=== PATIENT | female | born 1960 | race Caucasian/White ===

== ENCOUNTER 2019-12-23 09:47 | Outpatient (CLI) | payer OTHER, SELFPAY ==
[2019-12-23 10:20] LABS: Basophils Percent Auto 0.6 % (0.2-1.2); Eosinophils Absolute Auto 0.2 K/mm3 (0-0.3); Eosinophils Percent Auto 3.5 % (0-4.4); Hematocrit 35.5 % (37.0-47.0); Hemoglobin 11.3 g/dL (12.0-15.0); Immature Granulocyte Absolute 0.01 K/mm3 (0.00-0.031); Immature Granulocyte Percent A 0.2 % (0-0.5); Lymphocytes Absolute Auto 1.52 K/mm3 (0.9-3.2); Lymphocytes Percent Auto 29.3 % (18.3-44.2); Mean Corpuscular HGB Conc 31.8 g/dl (32-36); Mean Corpuscular Volume 91.3 fl (80-100); Mean Platelet Volume 9.7 fl (7.4-10.4); Monocytes Absolute Auto 0.4 K/mm3 (0.1-0.6); Monocytes Percent Auto 7.5 % (2.6-8.5); Neutrophils Absolute Auto 3.1 K/mm3 (1.3-6.7); Neutrophils Percent Auto 58.9 % (45.5-73.1); Platelet Count Result 244 k/mm3 (150-375); Red Blood Count 3.89 M/mm3 (4.2-5.4); White Blood Count 5.2 K/mm3 (4.5-10.0)
[2019-12-23 10:32] LABS: Alanine Aminotransferase 18 U/L (4-35); Albumin Level 4.3 g/dL (3.5-5.1); Alkaline Phosphatase 105 U/L (38-126); Aspartate Amino Transferase 21 U/L (14-36); Bilirubin,Total 0.3 mg/dL (0.2-1.3); Blood Urea Nitrogen 22 mg/dL (7-17); Carbon Dioxide 24 mmol/L (22-30); Chloride 105 mmol/L (98-107); Cholesterol 148 mg/dL (0-200); Estimated Glomerular Filt Rate 29; Glucose 98 mg/dL (65-105); HDL Direct 59 mg/dL; Potassium 4.3 mmol/L (3.4-5.0); Sodium 137 mmol/L (137-145); Triglycerides 151 mg/dL (<150)
[2019-12-23 10:44] LABS: LDL Cholesterol Direct 56 mg/dL
[2019-12-23 11:06] LABS: Hemoglobin A1C 5.5 % (<5.7)
== END 2019-12-23 09:48 | disposition home or self-care (01) ==
PROVIDERS: PCP Family Medicine; Visit Provider Nurse Practitioner
DX: E78.5 Hyperlipidemia, unspecified (principal); I10 Essential (primary) hypertension; E03.9 Hypothyroidism, unspecified; R73.9 Hyperglycemia, unspecified
CPT/HCPCS: 36415; 80053; 80061; 83036; 84443; 85025

== ENCOUNTER 2020-02-11 09:43 | Outpatient (CLI) | payer OTHER, SELFPAY ==
--- NOTE | ~2020-02-11 | XR_ITS ---
XR knee RT min 4V DATE: 02/11/2020 10:15 INDICATION: 2 falls 4 months ago. Bilateral knee pain. TECHNIQUE: 4 views COMPARISON: None FINDINGS: There is mild loss of height of the medial compartment joint space. No fracture or dislocation or joint effusion. No periosteal reaction or bone destruction. No radiopaq ue intra-articular loose body or chondrocalcinosis. IMPRESSION: Mild loss of height of medial joint space, likely due to degenerative change Reviewed, dictated and finalized at location A. IMPRESSION: Mild loss of height of medial joint space, likely due to degenerati ve change
== END 2020-02-11 09:44 | disposition home or self-care (01) ==
PROVIDERS: PCP Family Medicine; Visit Provider Nurse Practitioner
DX: M25.561 Pain in right knee (principal)
CPT/HCPCS: 73564

== ENCOUNTER → 2020-02-18 12:56 | Outpatient (CLI) | payer OTHER, SELFPAY ==
--- NOTE | ~2020-02-18 | MM_ITS ---
EXAMINATION: MM screening americo BI w wilver HISTORY: Screening mammogram TECHNIQUE: Craniocaudal and mediolateral oblique 3-D tomosynthesis images were obtained and synthetic 2-D images were generated. CAD analysis was submitted and interpreted. COMPARISON: 02/16/2017 bilateral diagnostic digital mammogram and Limited bilateral breast ultrasound 02/07/2017 bilateral digital screening mammogram BREAST PARENCHYMAL COMPOSITION: There are scattered areas of fibroglandular density. FINDINGS: There is an approximately 4.5 x 6.7 mm circumscribed opacity in the central left breast 5 c m deep to the nipple (craniocaudal Tomosynthesis image 40/76; MLO Tomosynthesis image 55/95). This is stable in appearance since 02/07/2017. There is no evidence of suspicious mass, calcification, or arch itectural distortion to suggest malignancy in either breast. There has been no suspicious interval ch jeannie. IMPRESSION: 1. No mammographic evidence of malignancy. 2. Recommend routine screening mammography in one year. BI-RADS Category 2: Benign finding(s). Reviewed, dictated and finalized at location A.
--- NOTE | ~2020-02-18 | DEXA_ITS ---
Bone Density Report Name: Germania Mathew Age: 60 Sex: Female Ethnicity: White Date of : 1960 Indication: postmenopausal; screening for osteoporosis; hysterectomy; rheumatoid arthritis; Referring Provider: Arina Graham Study: Bone densitometry was performed. Exam Date: February 18, 2020 Accession number: [id number] Bone Density: Region BMD T-score Z-score Classification AP Spine (L1, L2, L3) 1.054 0.3 1.8 Normal Femoral Neck (Left) 0.941 0.8 2.2 Normal Total Hip (Left) 1.015 0.6 1.6 Normal Femoral Neck (Right) 0.969 1.1 2.4 Normal Total Hip (Right) 1.044 0.8 1.8 Normal Total Hip Mean 1.030 0.7 1.7 Normal World Health Organization criteria for BMD impression classify patients as: Normal (T-score at or above -1.0), Osteopenia (T-score between -1.0 and -2.5), or Osteoporosis (T-score at or below -2.5). 10-year Fracture Risk: FRAX not reported because: All T-scores for Spine Total, Hip Total, Femoral Neck at or above -1.0 Clinical Information Provided by Patient: Smokes Has rheumatoid arthritis Has the following medical conditions: Hysterectomy Patient maximum height was 64 Menopause Age: 28 No regular weight bearing exercise Does not regularly consume dairy products Drinks caffeinated beverages Onset of menses at age 15 Number of children 3 Impression: The patient has normal bone mass. The patient has risk factors, including: smoking. Discussion: BONE DENSITY IS ABOVE THE MINIMUM DESIRABLE LEVEL AT ALL SKELETAL SITES TESTED. This patient?s bone mineral density is above the minimum desirable level (T-score -1.0 or better) at all sites measured. The patient should follow a healthful lifestyle (good nutrition with adequate calcium and vitamin D, and appropriate weight-bearing exercise). Follow-Up: Consider repeating this study in 5 years or sooner if there is some new clinical indication. Reported by: ANTONELLA on 02/18/2020 2:45:00 PM. Reviewed, dictated and finalized at location AJoby WHITE
== END ==
PROVIDERS: Visit Provider Nurse Practitioner
DX: Z12.31 Encounter for screening mammogram for malignant neoplasm of breast (principal); Z78.0 Asymptomatic menopausal state
CPT/HCPCS: 77063; 77067; 77080

== ENCOUNTER → 2020-02-25 08:24 | Outpatient (CLI) | payer OTHER, SELFPAY ==
--- NOTE | ~2020-02-25 | MR_ITS ---
EXAMINATION: MR knee RT wo con DATE: 02/25/2020 09:17 INDICATION: Right knee pain. TECHNIQUE: Magnetic resonance imaging (MRI) of the right knee was performed without intravenous contr ast. Sequences included axial PD-weighted FS FSE and STIR FSE, coronal PD-weighted FSE and STIR FSE, sagittal PD-weighted FSE, and sagittal STIR FSE. COMPARISON: Right knee radiographs 02/11/2020 FINDINGS: Medial compartment: There is an undersurface horizontal tear of posterior horn of medial meniscus. There is full-thicknes s cartilage loss of femoral condyle involving the central and posterior articular surface. There is d eep partial thickness cartilage loss of tibial condyle involving the central and medial articular joanna face. Osteophytes are noted. Lateral compartment: Lateral meniscus is intact. There is cartilage surface irregularity of tibial condyle and femoral con dyle. Patellofemoral compartment: There is deep partial thickness cartilage loss of patellar medial facet and median ridge and shallow partial-thickness cartilage loss of patellar lateral facet. There is shallow partial-thickness cartil age loss of medial trochlea. There are tiny marginal osteophytes. Ligaments and tendons: The anterior and posterior cruciate ligaments are normal. Medial collateral ligament is normal. There are changes of prior sprain of fibular collateral ligament characterized by thickening and increased signal intensity proximally. The patellar tendon is normal. Fluid: There is a moderate-sized knee joint effusion. There is a small Champion's cyst. There is mild prepatell ar and superficial infrapatellar bursitis. IMPRESSION: 1. Severe chondrosis of medial compartment, moderate chondrosis of patellofemoral compartment, and mi ld chondrosis of lateral compartment. 2. Tear of medial meniscus. 3. Moderate-sized knee joint effusion. 4. Small Champion's cyst. Reviewed, dictated and finalized at location A. IMPRESSION: 1. Severe chondrosis of medial compartment, moderate chondrosis of patellofemor al compartment, and mild chondrosis of lateral compartment. 2. Tear of medial meniscus. 3. Moderate-sized knee joint effusion. 4. Small Champion's cyst.
== END ==
PROVIDERS: PCP Family Medicine; Visit Provider Nurse Practitioner
DX: M25.561 Pain in right knee (principal); M22.2X1 Patellofemoral disorders, right knee; S83.241A Other tear of medial meniscus, current injury, right knee, initial encounter; M25.461 Effusion, right knee; M71.21 Synovial cyst of popliteal space [Baker], right knee
CPT/HCPCS: 73721

== ENCOUNTER 2020-04-20 10:30 | Outpatient (CLI) | payer OTHER, SELFPAY ==
--- NOTE | 2020-04-20 10:31 | ECG_ITS ---
Measurements Intervals [place] Rate: 62 P: 52 RI: 193 QRS: -14 QRSD: 112 T: 26 QT: 415 QTc: 422 Interpretive Statements SINUS RHYTHM INCOMPLETE RIGHT BUNDLE BRANCH BLOCK DELAYED PRECORDIAL R/S TRANSITION LOW QRS VOLTAGE IN PRECORDIAL LEADS BORDERLINE ST-T WAVE ABNORMALITY- ANTERIOR LEADS BASELINE ARTIFACT- I, II, AVR, V3 BORDERLINE ECG Electronically Signed On 04-20-2020 11:30:05 [employer] by Remy Hammond D.O.
== END 2020-04-20 10:31 | disposition home or self-care (01) ==
PROVIDERS: PCP Family Medicine; Visit Provider Orthopaedic Surgery
DX: Z01.818 Encounter for other preprocedural examination (principal); I10 Essential (primary) hypertension; I45.10 Unspecified right bundle-branch block
CPT/HCPCS: 93005

== ENCOUNTER 2020-04-25 01:36 | Outpatient (CLI) | payer OTHER, SELFPAY ==
[2020-04-25 19:09] LABS: SARS-CoV-2 RNA PCR Negative
== END 2020-04-25 01:37 | disposition home or self-care (01) ==
LOC: ANHCOVIDDT 01:36
PROVIDERS: PCP Family Medicine; Visit Provider Orthopaedic Surgery
DX: Z01.818 Encounter for other preprocedural examination (principal); Z20.828 Contact with and (suspected) exposure to other viral communicable diseases
CPT/HCPCS: 87635; C9803; U0003

== ENCOUNTER 2020-05-04 10:15 | Outpatient (CLI) | payer OTHER, SELFPAY ==
[2020-05-04 11:02] LABS: Alanine Aminotransferase 19 U/L (4-35); Albumin Level 4.3 g/dL (3.5-5.1); Alkaline Phosphatase 73 U/L (38-126); Anion Gap 6 mmol/L (8-16); Aspartate Amino Transferase 26 U/L (14-36); Bilirubin,Total 0.4 mg/dL (0.2-1.3); Blood Urea Nitrogen 13 mg/dL (7-17); Calcium 9.6 mg/dL (8.4-10.2); Carbon Dioxide 28 mmol/L (22-30); Chloride 102 mmol/L (98-107); Estimated Glomerular Filt Rate 35; Glucose 109 mg/dL (65-105); Potassium 4.7 mmol/L (3.4-5.0); Sodium 136 mmol/L (137-145)
== END 2020-05-04 10:16 | disposition home or self-care (01) ==
LOC: ANHLAB 10:15
PROVIDERS: PCP Family Medicine; Visit Provider Nurse Practitioner
DX: R74.8 Abnormal levels of other serum enzymes (principal)
CPT/HCPCS: 36415; 80053

== ENCOUNTER → 2020-05-07 13:40 | Outpatient (CLI) | payer OTHER, SELFPAY ==
--- NOTE | ~2020-05-07 | US_ITS ---
EXAMINATION: US renal BI EXAM DATE: 05/07/2020 13:57 INDICATION: Chronic kidney disease stage 3b . TECHNIQUE: Multiple grayscale and Doppler images of the kidneys were obtained (by a technologist who performed the scan) and subsequently reviewed. Comparison is made to prior examination from 11/04/2015. FINDINGS: Right kidney: There is normal contour and echogenicity. It measures 7.8 x 4.8 x 5.4 centimeters. Th ere are no focal renal lesions identified. There is no hydronephrosis. Left kidney: There is normal contour and echogenicity. It measures 9.2 x 4.6 x 5.2 centimeters. The re are no focal renal lesions identified. There is no hydronephrosis. Bladder unremarkable. IMPRESSION: 1. Mild to moderate right, mild left renal atrophy. Reviewed, dictated and finalized at location A. GEMENT COORDINATOR
== END ==
PROVIDERS: PCP Family Medicine; Visit Provider Internal Medicine Nephrology
DX: N18.32 Chronic kidney disease, stage 3b (principal); N26.1 Atrophy of kidney (terminal)
CPT/HCPCS: 76775

== ENCOUNTER 2020-05-16 01:26 | Outpatient (CLI) | payer OTHER, SELFPAY ==
[2020-05-16 20:15] LABS: SARS-CoV-2 RNA PCR Negative
== END 2020-05-16 01:27 | disposition home or self-care (01) ==
LOC: ANHCOVIDDT 01:26
PROVIDERS: Nurse Practitioner Family; PCP Family Medicine; Visit Provider Orthopaedic Surgery
DX: R68.89 Other general symptoms and signs (principal); Z20.828 Contact with and (suspected) exposure to other viral communicable diseases
CPT/HCPCS: 87635; C9803; U0003

== ENCOUNTER 2020-05-19 00:46 | Day surgery (SDC) | payer OTHER, SELFPAY ==
[2020-04-16 10:41] VITALS: BMI 44.6
--- NOTE | 2020-04-29 07:21 | WPDHPUPDATE1 ---
History and Physical Update Update Date/Time: 04/29/20 07:21 History and Physical has been reviewed, including an updated exam of the patient. There are NO changes in the patient's condition. Risks, benefits, and alternatives have been discussed and questions answered. Patient agrees to proceed with procedure.
--- NOTE | 2020-05-11 15:06 | PC.NURSE ---
pt states no change in health hx since original interview date. new time/date and covid testing info provided
--- NOTE | 2020-05-14 16:02 | PM.IMHP ---
H&P: HPI History of Present Illness Date/Time: Knee Injury/Condition Pt presents with Right knee pain after a fall approximately 1 year ago. She states she fell two times and landed on her knee. She has lateral swelling. Pain is primarily medial. She has not had any previous injuries or surgeries to her knee. Current symptoms: Reports locking, catching, instability, giving way and stiffness Location: medial, lateral (swelling), anterior, posterior (swelling) and distal Character: constant, stabbing, throbbing and shooting Onset: 7-12 months Exacerbated by: sitting, weight bearing, kneeling, stairs and prolonged activity Previous treatments: Anti-inflammatory meds: right and Ice: right Improved by treatment/surgery: no Chief complaint: Right Knee Medial Meniscus Tear Review of Systems Review of Systems: All systems reviewed & are unremarkable except as noted in HPI and below Constitutional: Constitutional: Denies headache(s) and Denies weakness Eyes: Eyes: Denies blurry vision, Denies change in vision and Denies loss of vision ENT: Denies dizziness, Denies dry mouth, Denies headache(s) and Denies nasal congestion Cardiovascular: Cardiovascular: Denies chest pain, Denies syncope, Denies leg edema and Denies dyspnea on exertion Respiratory: Respiratory: Denies cough and Denies dyspnea on exertion Gastrointestinal: Gastrointestinal: Denies abdominal pain, Denies constipation and Denies diarrhea Genitourinary: Genitourinary: Denies urinary frequency Musculoskeletal: Musculoskeletal: Reports as per HPI and Denies numbness Integumentary/Breasts: Skin/Breast: Reports system reviewed and no additional complaints, except as docu Neurologic: Denies dizziness, Denies syncope, Denies headache(s), Denies loss of vision, Denies numbness and Denies weakness Psychiatric: Psychiatric: Reports no additional psychiatric complaints Endocrine: Endocrine: Reports no additional endocrine complaints Hematologic/Lymphatic: Hematologic/Lymphatic: Reports no additional hematologic/lymphatic complaints [facility] Past Medical History Medical History Adult hypothyroidism (~2004) CHF (congestive heart failure) (~11/11/15) CKD stage G4/A1, GFR 15-29 and albumin creatinine ratio <30 mg/g COPD mixed type (~2015) Endometriosis Fibromyalgia (~1997) Former heavy tobacco smoker (~2011) quit 2011 after 35 years of smoking up to 2 ppd per [facility] 10/31/2015 History of suicide attempt (~1974) teens x2; 10/11/2017 Hyperlipidemia, unspecified (~2015) Major depression, recurrent, chronic (~1974) Meniere's disease (~02/11/15) Migraines (~1994) SIMON and COPD overlap syndrome (~2015) Prediabetes (~12/08/14) Restless leg syndrome (~02/11/15) Severe obesity (BMI >= 40) (~11/19/15) Surgical History Surgical History H/O hysterectomy for benign disease H/O shoulder surgery right History of appendectomy History of section x2 Family History Family History Mother Hypertension Family history of elevated blood lipids Father Carcinoma of colon Patient's father is Sibling Hypertension Sibling Rheumatoid arthritis Other Heart disease Social History Social History Years smoked: 45 Smoking status: Current every day smoker Tobacco type: cigarettes Alcohol intake: never Substance use: never Gender identity (if verbalized by the patient): Female Spiritual care concerns: No Agree to blood products: Yes Meds Home Medications and Allergies Home Medications Medication Instructions Recorded Confirmed Type carvedilol 25 mg tablet 25 mg PO Q12H #180 tablet 06/04/19 04/16/20 Rx losartan 100 mg tablet 100 mg PO DAILY #30 tablet 07/29/19 04/16/20 Rx gabapentin 300 mg capsule 300 mg PO TID #270 cap 07
[2020-05-19] VITALS (9 sets, daily range): BP systolic 129–186; BP diastolic 65–118; PULSE 87–105; RESP 10–20; TEMP 36.1–37.3; O2SAT 97–100
--- NOTE | 2020-05-19 13:34 | WPDANESEPPF ---
Anes - Initial Pre Proc Eval Procedure: Operation Date: 05/19/20 15:00 Proposed Procedures p Right Knee Arthroscopy - Magdy Ho MD Date/Time: 05/19/20 13:34 Surgeon: Magdy Ho MD Pre Op Diagnosis: Right Knee Medial Meniscus Tear Patient Data Age: 60 Gender: F Height: 5 ft 4 in Weight: 118 kg Allergies Allergy/AdvReac Type Severity Reaction Status Date / Time naproxen Allergy Severe hives Verified 04/16/20 09:48 Iodine and Iodide Containing Allergy Intermediate hives Verified 04/16/20 09:48 Produc lisinopril Allergy Intermediate Cough Verified 04/16/20 09:48 Penicillins Allergy Intermediate hives Verified 04/16/20 09:48 Sulfa (Sulfonamide Allergy Mild hives Verified 04/16/20 09:48 Antibiotics) Contrast Media Allergy Intermediate HIVES Uncoded 04/16/20 09:48 Home Medications Medication Instructions Recorded Confirmed Type carvedilol 25 mg tablet 25 mg PO Q12H #180 tablet 06/04/19 04/16/20 Rx losartan 100 mg tablet 100 mg PO DAILY #30 tablet 07/29/19 04/16/20 Rx gabapentin 300 mg capsule 300 mg PO TID #270 cap 12/12/19 04/16/20 Rx chlorhexidine gluconate 4 % 1 applic TOPICAL ONCE #237 ml 04/13/20 04/16/20 Rx topical liquid albuterol 90 mcg INHALATION PRN PRN 04/16/20 04/16/20 History atorvastatin 40 mg PO DAILY 04/16/20 04/16/20 History ipratropium-albuterol 3 ml INHALATION PRN PRN 04/16/20 04/16/20 History levothyroxine 50 mcg PO DAILY 04/16/20 04/16/20 History prazosin 2 mg PO HS 04/16/20 04/16/20 History quetiapine 200 mg PO HS 04/16/20 04/16/20 History trazodone 100 mg PO HS 04/16/20 04/16/20 History venlafaxine 75 mg PO QAM 04/16/20 04/16/20 History venlafaxine 150 mg PO HS 04/16/20 04/16/20 History tizanidine 4 mg tablet See Rx Instructions .ROUTE 04/23/20 Rx .COMPLEX #90 tablet hydroxyzine pamoate 25 mg capsule 25 mg PO DAILY #30 cap 04/28/20 Rx acyclovir 5 % topical cream 1 applic TOPICAL ONCE PRN #5 g 04/29/20 Rx tramadol 50 mg tablet 50 mg PO TID PRN #60 tablet 05/06/20 Rx Patient hx anesthesia problems: none Family hx anesthesia problems: none PMFSH Past Medical History Medical History Adult hypothyroidism (~2004) CHF (congestive heart failure) (~11/11/15) CKD stage G4/A1, GFR 15-29 and albumin creatinine ratio <30 mg/g COPD mixed type (~2015) Endometriosis Fibromyalgia (~1997) Former heavy tobacco smoker (~2011) quit 2011 after 35 years of smoking up to 2 ppd per [facility] record 10/31/2015 History of suicide attempt (~1974) teens x2; 10/11/2017 Hyperlipidemia, unspecified (~2015) Major depression, recurrent, chronic (~1974) Meniere's disease (~02/11/15) Migraines (~1994) SIMON and COPD overlap syndrome (~2015) Prediabetes (~12/08/14) Restless leg syndrome (~02/11/15) Severe obesity (BMI >= 40) (~11/19/15) Surgical History Surgical History H/O hysterectomy for benign disease H/O shoulder surgery right History of appendectomy History of section x2 Family History Family History Mother Hypertension Family history of elevated blood lipids Father Carcinoma of colon Patient's father is Sibling Hypertension Sibling Rheumatoid arthritis Other Heart disease Social History Social History Years smoked: 45 Smoking status: Current every day smoker Tobacco type: cigarettes Alcohol intake: never Substance use: never Living arrangements: with family Gender identity (if verbalized by the patient): Female Spiritual care concerns: No Agree to blood products: Yes Anes - Eval Final PreProcedure Day of Procedure 05/19/20 13:34 Patient weight: morbidly obese Heart: regular rate and rhythm Lungs: clear to auscultation Airway: Mallampati scale class II and class III Neurological: alert and wilmer
[2020-05-19] MEDS: ACETAMINOPHEN 500 MG TABLET 1000 MG PO (13:46)
[2020-05-19] MEDS: LACTATED RINGERS 1,000 ML 30 ML IV CONT ×2 (13:50→16:03)
--- NOTE | 2020-05-19 14:10 | WPDHPUPDATE1 ---
History and Physical Update Update Date/Time: 05/19/20 14:10 History and Physical has been reviewed, including an updated exam of the patient. There are NO changes in the patient's condition. Risks, benefits, and alternatives have been discussed and questions answered. Patient agrees to proceed with procedure.
[2020-05-19] MEDS: CLINDAMYCIN 900 MG/D5W 50 ML 900 MG/50 ML PIGGYBACK 50 MG IVPB (14:15)
[2020-05-19] MEDS: BUPIVACAINE HCL 0.5% PF 30 ML VIAL INFILTRATE (14:54)
[2020-05-19] MEDS: fentaNYL CITRATE INJ (*CRX) 100 MCG/2 ML VIAL 25 MCG IV PUSH ×6 (15:30→15:53)
--- NOTE | 2020-05-19 15:30 | PM.PROC ---
Procedure Note - Detailed Date of procedure: 05/19/20 Pre-op diagnosis: Right Knee Medial Meniscus Tear Post-op diagnosis: other (medial meniscus tear, lateral meniscus tear, chondromalacia, synovitis) Procedure performed: RIGHT KNEE SCOPE WITH PARTIAL MEDIAL MENISCECTOMY AND MAJOR SYNEVECTOMY Description of procedure: PATIENT WAS TAKEN TO THE OR. THE RIGHT LEG WAS PREPPED AND DRAPED STERILE. TROCARS WERE PLACED IN THE USUAL FASHION. CAMERA WAS INTRODUCED. THERE WAS CHONDROMALACIA TO THE PATELLA FEMORAL JOINT. THERE WAS A LOT OF SYNOVITIS IN ALL COMPARTMENTS. THE MEDIAL COMPARTMENT SHOWED CHONDROMALACIA TO THE MED FEMORAL CONDYLE. A SHAVER WAS USED TO PREFORM A CHONDROPLASTY. THERE WAS A COMPLEX MEDIAL MENISCUS TEAR. THE TEAR EXTENDED FROM THE MENISCAL ROOT TO THE POSTERIOR HORN MAIN BODY. THE TEAR WAS RESECTED WITH A BITER AND A SHAVER DOWN TO A SMOOTH BASE. ABOUT 15% OF THE MENISCUS WAS REMOVED. THE ACL WAS INTACT. THE LATERAL MENISCUS WAS NOT TORN. THE LAT COMPARTMENT HAD NO SIGNIFICANT CHONDROMALACIA. THE PATELLO FEMORAL JOINT UNDERWENT CHONDROPLASTY. THERE WAS GRADE 3 CHONDROMALACIA IN MOST OF THE TROCHLEA AND PART OF THE PATELLA. SYNOVECTOMY WAS PREFORMED IN THE SUPERIOR MEDIAL COMPARTMENT AND IN HOFFA'S SYNOVIUM. THE PATELLA TRACKED NORMALLY WITHIN THE TROCHLEA. THE WOUNDS WERE APPROXIMATED WITH 4.0 NYLON. STERILE DRESSING WAS APPLIED. PATIENT WAS EXTUBATED. Anesthesia: GLMA Surgeon: Magdy Ho MD Estimated blood loss (mL): 5 Complications: No immediate complications Condition: stable Disposition: PACU
[2020-05-19] MEDS: MEPERIDINE HCL INJ (*CRX) 50 MG/ML AMPUL 25 MG IV PUSH (15:58)
--- NOTE | 2020-05-19 16:09 | SUR.PHASEI ---
PATIENT SHAKING SINCE ARRIVAL TO PACU. JAY NIX APPLIED BUT STILL SHAKING. DR. GONZALEZ ORDERED DEMEROL WHICH IS HELPING SOMEWHAT,
== END 2020-05-19 17:40 | disposition home or self-care (01) ==
PROVIDERS: PCP Family Medicine; Visit Provider Orthopaedic Surgery
PROC: (CPT 29870; principal; 2020-05-19 15:00)
DX: S83.231A Complex tear of medial meniscus, current injury, right knee, initial encounter (principal); M65.861 Other synovitis and tenosynovitis, right lower leg; M94.261 Chondromalacia, right knee; W19.XXXA Unspecified fall, initial encounter; I13.0 Hypertensive heart and chronic kidney disease with heart failure and stage 1 through stage 4 chronic kidney disease, or unspecified chronic kidney disease; N18.4 Chronic kidney disease, stage 4 (severe); I50.9 Heart failure, unspecified; E03.9 Hypothyroidism, unspecified; M79.7 Fibromyalgia; J44.9 Chronic obstructive pulmonary disease, unspecified; E78.5 Hyperlipidemia, unspecified; F33.9 Major depressive disorder, recurrent, unspecified; G47.33 Obstructive sleep apnea (adult) (pediatric); R73.03 Prediabetes; G25.81 Restless legs syndrome; Z87.891 Personal history of nicotine dependence; E66.01 Morbid (severe) obesity due to excess calories; Z68.41 Body mass index [BMI] 40.0-44.9, adult
CPT/HCPCS: 29881; 29876; A9270; J1100; J2175; J2405; J2704; J3010; J7120

== ENCOUNTER → 2020-08-28 00:34 | Outpatient (CLI) | payer OTHER, SELFPAY ==
[2020-08-28 17:44] LABS: SARS-CoV-2 RNA PCR Negative
== END ==
PROVIDERS: PCP Family Medicine; Visit Provider Internal Medicine Critical Care Medicine
DX: Z01.812 Encounter for preprocedural laboratory examination (principal); Z20.822 Contact with and (suspected) exposure to COVID-19
CPT/HCPCS: C9803; U0003; U0005

== ENCOUNTER 2020-08-31 09:19 | Outpatient (CLI) | payer OTHER, SELFPAY ==
--- NOTE | 2020-09-21 09:26 | WPDSLEEPSTUD ---
Sleep Study Date of Study: 08/31/20 Ordering Provider: Remy Hammond DO Interpreting Physician: Karina Lanier MD Sleep Study Type: CPAP Titration Height: 1.63 m Weight: 122.47 kg Body Mass Index: 46.3 Neck Circumference (inches): 16.5 [place] [facility]: 7 Reason for Sleep Study history of obstructive sleep apnea syndrome, prior split night on 12/16/2015 optimal pressure 15 cm Sleep History Germania Mathew is a 60 year old female with history of moderate obstructive sleep apnea syndrome, optimal pressure was 15 and 2016. A repeat CPAP titration was ordered by Dr. Hammond. She reports difficulty falling asleep, she wakes up throughout the night, she has a difficult time waking in the morning and she has excessive daytime sleepiness. Both of her parents have sleep difficulties. The patient has used CPAP. It she occasionally awakens from sleep feeling short of breath. She rarely awakens at night with heartburn, belching or coughing. She rarely snores and rarely isn't loud enough that others complain about it. She occasionally has trouble sleeping when she has a cold. She rarely wakes up gasping for breath at night. She occasionally has breathing problems at night observed by others. She does not sweat excessively at night. She rarely notices her heart pounding or beating irregularly at night. She constantly falls asleep during the day, rarely involuntarily, never while driving. She does not fall asleep during physical effort. She does not have loss of muscle tone was strong emotion. She rarely has daytime difficulties due to excessive sleepiness. She does not feel paralyzed on waking or falling asleep and does not have vivid dreamlike scenes upon awakening or falling asleep. She does not feel afraid to go to sleep. She does not have nightmares. She does not have dream recall. She constantly has racing thoughts. She does not feel sad or depressed. She frequently has anxiety and worries about things. She rarely has muscular tension. She constantly notices parts of her body jerking. She occasionally kicks at night. She constantly has crawling and aching feelings in her legs and constantly has leg pain at night. She does not have morning jaw pain and does not grind her teeth during sleep. She occasionally has bothered by pain during the day and occasionally is awakened by pain at night. She rarely wakes up feeling stiff in the morning. She occasionally wakes up with sore achy muscles and pain in the neck and spine. She has memory problems and insomnia. Normal bedtime is 10:00 p.m. taking 5 hours to fall asleep waking 2 or 3 times at night. When she wakes at night she often has a cigarette. It may take her an hour to return to sleep. She wakes the morning at 8:00 a.m.. She estimates getting up to 6 hours of sleep. On the weekends she goes to bed at midnight and wakes at 10 in the morning. She always sleeps with the television on. She takes naps. A short nap is not refreshing. She is drowsy for 3 hours after waking. She feels better in the morning compared other times of day. Habits: Tobacco 1 pack per day. Caffeine : 4 Cokes per day. No alcohol or recreational drugs. [facility] Past Medical History Medical History Adult hypothyroidism (~2004) CHF (congestive heart failure) (~11/11/15) CKD stage G4/A1, GFR 15-29 and albumin creatinine ratio <30 mg/g COPD mixed type (~2015) Endometriosis Fibromyalgia (~1997) Former heavy tobacco smoker (~2011) quit 2011 after 35 years of smoking up to 2 ppd per [facility] 10/31/2015 History of suicide attempt (~1974) teens x2; 10/11/2017 Hyperlipidemia, unspecified (~2015) Major depression, recurrent, chronic (~1974) Meniere's disease (~02/11/15) Migraines (~1994) SIMON and COPD overlap syndrome (~2015) Prediabetes (~12/08/14) Restless leg syndrome (~02/11/15) Severe obesity (BMI >= 40) (~11/19/15) Surgical History Surgical History (Revie
[2020-09-21 09:35] VITALS: BMI 46.3
== END 2020-08-31 09:20 | disposition home or self-care (01) ==
LOC: ANHCSM 09:19
PROVIDERS: PCP Family Medicine; Visit Provider Internal Medicine Cardiovascular Disease
DX: G47.33 Obstructive sleep apnea (adult) (pediatric) (principal)
CPT/HCPCS: 95811

== ENCOUNTER → 2021-01-15 03:40 | Outpatient (CLI) | payer OTHER, SELFPAY ==
[2021-01-16 01:34] LABS: SARS-CoV-2 RNA PCR Negative
== END ==
PROVIDERS: PCP Family Medicine; Visit Provider Nurse Practitioner
DX: R68.89 Other general symptoms and signs (principal); Z20.822 Contact with and (suspected) exposure to COVID-19
CPT/HCPCS: C9803; U0003; U0005

== ENCOUNTER 2021-03-12 14:37 | Outpatient (CLI) | payer OTHER, SELFPAY ==
--- NOTE | 2021-03-12 14:47 | ECHO_ITS ---
Patient Info Name: Germania Mathew Age: 61 years : 1960 Gender: Female Ht: 64 in Wt: 270 lbs BSA: 2.42 m2 HR: 78 bpm BP: 128 / 78 mmHg Technical Quality: Fair Exam Date: 03/12/2021 3:03 PM Exam Location: [facility] Patient Status: Outpatient Admit Date: 03/12/2021 Staff Ordering Physician: Remy Hammond DO Stream Control Officer: Destiny Bains RDCS Attending Provider: Remy Hammond DO Referring Physician: Manish SPARKS; Exam Type: CA echo dop color flow w con Study Info Indications - nonrheumatic mitral julia prolaspe Complete two-dimensional, color flow and Doppler transthoracic echocardiogram is performed with contrast to opacify the left ventricle and to improve the deliniation of the left ventricle endocardial borders. Contrast/Agitated Saline Contrast/Ag. Saline: Definity Amount: 1.00 ml Administered By: Perma Gastelum RN Existing IV Access: Yes Summary 1. Left ventricular chamber dimension is normal. 2. Definity contrast administered improved wall motion interpretation. 3. Left ventricular systolic function is normal, estimated at 60-65%. 4. The left ventricular diastolic function is grade I diastolic dysfunction. 5. E/e' 13 is mildly elevated. 6. No pulmonary hypertension, estimated pulmonary arterial systolic pressure is 22 mmHg. 7. There is small circumferential pericardial effusion. Left Ventricle Definity contrast administered improved wall motion interpretation. E/e' 13 is mildly elevated. Left ventricular chamber dimension is normal. Left ventricular systolic function is normal, estimated at 60-65%. The left ventricular diastolic function is grade I diastolic dysfunction. Right Ventricle Right ventricular chamber dimension is normal. Right ventricular systolic function is normal. Left Atria Left atrial chamber dimension is normal. Right Atria Right atrial chamber dimension is normal. Aortic Valve The aortic valve is trileaflet. There is no aortic valve stenosis. There is no aortic valve regurgitation. Pulmonic Valve There is no pulmonic regurgitation. Mitral Valve There is no mitral valve stenosis. There is no mitral valve regurgitation. Tricuspid Valve There is no tricuspid valve regurgitation. No pulmonary hypertension, estimated pulmonary arterial systolic pressure is 22 mmHg. Pericardium/Pleural There is small circumferential pericardial effusion. Inferior Vena Cava Normal inferior vena cava with >50% collapse upon inspiration consistent with normal right atrial pressure, 5 mmHg. Aorta The aortic root size at the sinus of Valsalva is normal. Left Ventricular Outflow Tract Name Value Normal LVOT 2D LVOT Diameter 1.96 cm LVOT Doppler LVOT Peak Gradient 13 mmHg LVOT Mean Gradient 6 mmHg LVOT VTI 33.62 cm LVOT VTI/AV VTI Ratio 1.06 LVOT Stroke Volume 101.50 ml LVOT CO 21.33 l/min LVOT CI 8
== END 2021-03-12 14:38 | disposition home or self-care (01) ==
PROVIDERS: PCP Family Medicine; Visit Provider Internal Medicine Cardiovascular Disease
DX: I34.1 Nonrheumatic mitral (valve) prolapse (principal); I31.3 Pericardial effusion (noninflammatory)
CPT/HCPCS: C8929

== ENCOUNTER 2021-10-19 06:35 | Emergency (ER) | payer OTHER, SELFPAY ==
[2021-10-19] VITALS (8 sets, daily range): BP systolic 73–132; BP diastolic 49–91; PULSE 59–76; RESP 16–23; O2SAT 95–100
--- NOTE | ~2021-10-19 | CT_ITS ---
EXAMINATION: CT cervical spine wo con DATE: 10/19/2021 07:38 INDICATION: Right-sided neck pain. TECHNIQUE: Computed tomography (CT) of the cervical spine was performed without intravenous contrast. Automated exposure control and iterative reconstruction technique were employed. The dose-length pro duct was 508.77 mGy-cm. COMPARISON: None FINDINGS: There is 2 mm retrolisthesis of C5 on C6. Vertebral body heights are normal. There is sever yonatan decreased disc height at C5-C6 and mildly decreased disc height at C6-C7. The following disc leve ls are specifically discussed: C2-C3: There is no uncovertebral joint osteoarthritis. There is mild bilateral facet joint osteoarthr itis. There is no neural foraminal stenosis. There is no central canal stenosis. C3-C4: There is no uncovertebral joint osteoarthritis. There is mild right and severe left facet join t osteoarthritis. There is mild left neural foraminal stenosis. There is no central canal stenosis. C4-C5: There is no uncovertebral joint osteoarthritis. There is moderate right and severe left facet joint osteoarthritis. There is mild left neural foraminal stenosis. There is mild central canal steno sis. C5-C6: There is severe bilateral uncovertebral joint osteoarthritis. There is mild bilateral facet ana int osteoarthritis. There is mild bilateral neural foraminal stenosis. There is mild central canal st enosis. C6-C7: There is mild right and moderate left uncovertebral joint osteoarthritis. There is moderate bi lateral facet joint osteoarthritis. There is mild left neural foraminal stenosis. There is mild centr al canal stenosis. C7-T1: There is no uncovertebral joint osteoarthritis. There is severe bilateral facet joint osteoart hritis. There is mild right neural foraminal stenosis. There is no central canal stenosis. IMPRESSION: 1. No fracture. 2. Severe cervical spondylosis. Reviewed, dictated and finalized at location B.
--- NOTE | ~2021-10-19 | XR_ITS ---
EXAMINATION: XR elbow RT min 3V DATE: 10/19/2021 07:53 INDICATION: Right elbow pain post fall TECHNIQUE: Anteroposterior, two oblique and lateral views of the right elbow were obtained. COMPARISON: None. FINDINGS: Alignment is normal. No fracture or joint effusion. Mild osteoarthritis at the ulnotrochlear articula tion. Mild soft tissue swelling with subcutaneous edema posterior to the proximal ulna. IMPRESSION: 1. No right elbow joint effusion or acute osseous abnormality. Reviewed, dictated and finalized at location A.
--- NOTE | ~2021-10-19 | XR_ITS ---
EXAMINATION: XR shoulder RT min 2V DATE: 10/19/2021 07:53 INDICATION: Right shoulder pain post fall TECHNIQUE: AP internally and externally rotated, AP oblique externally rotated and transscapular Y vi ews of the right shoulder were obtained. COMPARISON: None FINDINGS: Suggestion of postoperative change of prior acromioplasty and distal clavicle resection. Old healed p osterolateral right third-seventh rib fractures. No acute fractures identified. 5 x 3 mm calcificatio n projecting along the right greater tuberosity which could be due to either heterotopic ossification related to old trauma or calcific tendinitis. IMPRESSION: 1. No acute osseous abnormality. 2. Small calcification along the greater tuberosity which could be due to calcific tendinitis or sequ weston of old trauma. Reviewed, dictated and finalized at location A. IMPRESSION: 1. No acute osseous abnormality. 2. Small calcification along the greater tuberosity which could be due to calci fic tendinitis or sequela of old trauma.
--- NOTE | 2021-10-19 07:18 | PC.NURSE ---
Assumed care from DANA Ivan. Pt sitting up in bed at this time
[2021-10-19] MEDS: diazePAM INJ (*CRX) 10 MG/2 ML SYRINGE 5 MG IV PUSH (08:34)
[2021-10-19] MEDS: SODIUM CHLORIDE 0.9% IV 1,000 ML 999 ML IV CONT (10:24)
--- NOTE | 2021-10-19 11:49 | ED.GENADULT ---
HPI - General Adult General Chief complaint: Fall Stated complaint: Fall Time Seen by Provider: 10/19/21 06:57 History of Present Illness HPI narrative: Patient is a 61-year-old female who presents ER with neck pain status post fall. Patient fell 2 days ago. She was in her bedroom and had her cellar door open to the basement when she fell down at 8 stairs on concrete steps. Landed on her right side. Has pain to the right shoulder. She is able to move her arm. She reports did not have sudden pain or sudden onset tingling and numbness or burning. She slowly developed discomfort in her neck over the last couple days. She is also noticed a burning sensation that will occasionally go into her arms bilaterally. No urinary frequency urgency or dysuria. No urinary retention. No lower extremity numbness or tingling. Patient placed in c-collar. Denies striking her head or losing consciousness. Related Data Home Medications Medication Instructions Recorded Confirmed quetiapine 100 mg tablet 100 mg PO .COMPLEX tablet 10/28/20 09/16/21 quetiapine 300 mg tablet 300 mg PO .COMPLEX tablet 10/28/20 09/16/21 Allergies Allergy/AdvReac Type Severity Reaction Status Date / Time Iodine and Iodide Containing Allergy Severe hives Verified 09/16/21 14:14 Produc naproxen Allergy Severe hives Verified 09/16/21 14:14 Penicillins Allergy Severe hives Verified 09/16/21 14:14 Sulfa (Sulfonamide Allergy Severe hives Verified 09/16/21 14:14 Antibiotics) lisinopril Allergy Intermediate Cough Verified 09/16/21 14:14 Contrast Media Allergy Severe HIVES Uncoded 09/16/21 14:14 Review of Systems Review of Systems: All systems reviewed & are unremarkable except as noted in HPI and below Constitutional: Constitutional: Denies chills, Denies fever(s) and Denies weakness Eyes: Eyes: Denies change in vision and Denies photophobia ENT: Denies nasal congestion and Denies sore throat Cardiovascular: Cardiovascular: Denies chest pain, Denies rapid heart rate and Denies radiating jaw, neck or arm pain Respiratory: Respiratory: Denies cough and Denies dyspnea Musculoskeletal: Musculoskeletal: Denies back pain, Reports arthralgias and Denies joint swelling Comments: Neck pain Neurologic: Denies headache(s), Denies focal weakness and Denies numbness Comments: Burning sensation in arms PMFSH Past Medical History Medical History Adult hypothyroidism (~2004) CHF (congestive heart failure) (~11/11/15) CKD stage G4/A1, GFR 15-29 and albumin creatinine ratio <30 mg/g COPD mixed type (~2015) Dislocation of finger Endometriosis Fibromyalgia (~1997) Former heavy tobacco smoker (~2011) quit 2011 after 35 years of smoking up to 2 ppd per [facility] 10/31/2015 History of suicide attempt (~1974) teens x2; 10/11/2017 Hyperlipidemia, unspecified (~2015) Hypertension Major depression, recurrent, chronic (~1974) Medial meniscus, posterior horn derangement Meniere's disease (~02/11/15) Migraines (~1994) Prediabetes (~12/08/14) Restless leg syndrome (~02/11/15) Surgical History Surgical History H/O hysterectomy for benign disease H/O knee surgery H/O shoulder surgery right History of appendectomy History of section x2 Family History Family History Mother Hypertension Family history of elevated blood lipids Father Carcinoma of colon Patient's father is Sibling Hypertension Sibling Rheumatoid arthritis Other Heart disease Social History Social History (Updated 09/16/21 @ 14:28 by Summer Portillo MA) Years smoked: 45 Smoking status: Former smoker Tobacco type: cigarettes Alcohol intake: never Substance use: never Gender identity (if verbalized by the patient): Female Spiritual care concerns: No Agree to blood produc
== END 2021-10-19 12:08 | disposition home or self-care (01) ==
PROVIDERS: Emergency Provider Emergency Medicine; PCP Family Medicine
DX: S16.1XXA Strain of muscle, fascia and tendon at neck level, initial encounter (principal); M54.12 Radiculopathy, cervical region; I13.0 Hypertensive heart and chronic kidney disease with heart failure and stage 1 through stage 4 chronic kidney disease, or unspecified chronic kidney disease; I50.9 Heart failure, unspecified; N18.4 Chronic kidney disease, stage 4 (severe); Z87.891 Personal history of nicotine dependence; W10.9XXA Fall (on) (from) unspecified stairs and steps, initial encounter; Y92.008 Other place in unspecified non-institutional (private) residence as the place of occurrence of the external cause
CPT/HCPCS: 72125; 73030; 73080; 96361; 96365; 96375; 99284; J0131; J3360; J7030; L0140

== ENCOUNTER 2022-05-06 08:58 | Outpatient (CLI) | payer OTHER, SELFPAY ==
[2022-05-06 09:22] LABS: Basophils Percent Auto 0.5 % (0.2-1.2); Eosinophils Absolute Auto 0.2 K/mm3 (0-0.3); Eosinophils Percent Auto 2.9 % (0-4.4); Hemoglobin 12.2 g/dL (12.0-15.0); Immature Granulocyte Absolute 0.03 K/mm3 (0.00-0.031); Immature Granulocyte Percent A 0.5 % (0-0.5); Lymphocytes Absolute Auto 1.73 K/mm3 (0.9-3.2); Lymphocytes Percent Auto 27.9 % (18.3-44.2); Mean Corpuscular HGB Conc 32.1 g/dl (32-36); Mean Corpuscular Hemoglobin 30.6 pg (26-34); Mean Corpuscular Volume 95.2 fl (80-100); Mean Platelet Volume 10.1 fl (7.4-10.4); Monocytes Absolute Auto 0.5 K/mm3 (0.1-0.6); Monocytes Percent Auto 8.1 % (2.6-8.5); Neutrophils Absolute Auto 3.7 K/mm3 (1.3-6.7); Neutrophils Percent Auto 60.1 % (45.5-73.1); Platelet Count Result 249 k/mm3 (150-375); Red Blood Count 3.99 M/mm3 (4.2-5.4); Red Cell Distribution Width 12.1 % (11.5-14.5); White Blood Count 6.2 K/mm3 (4.5-10.0)
[2022-05-06 09:31] LABS: Alanine Aminotransferase 24 U/L (6-35); Albumin Level 4.4 g/dL (3.5-5.1); Alkaline Phosphatase 79 U/L (38-126); Anion Gap 7 mmol/L (8-16); Aspartate Amino Transferase 22 U/L (14-36); Bilirubin,Total 0.5 mg/dL (0.2-1.3); Blood Urea Nitrogen 12 mg/dL (7-17); Calcium 9.1 mg/dL (8.4-10.2); Carbon Dioxide 28 mmol/L (22-30); Chloride 106 mmol/L (98-107); Cholesterol 147 mg/dL (0-200); Estimated Glomerular Filt Rate 45; Glucose 125 mg/dL (65-110); HDL Direct 66 mg/dL; Hemoglobin A1C 5.5 % (<5.7); Potassium 3.8 mmol/L (3.4-5.0); Sodium 141 mmol/L (137-145); Triglycerides 119 mg/dL (<150)
[2022-05-06 09:43] LABS: LDL Cholesterol Direct 51 mg/dL
== END 2022-05-06 08:59 | disposition home or self-care (01) ==
LOC: ANHLAB 09:04
PROVIDERS: PCP Nurse Practitioner; Visit Provider Nurse Practitioner
DX: E78.5 Hyperlipidemia, unspecified (principal); R73.03 Prediabetes; E03.9 Hypothyroidism, unspecified
CPT/HCPCS: 36415; 80053; 80061; 83036; 84443; 85025

== ENCOUNTER 2022-05-19 13:59 | Inpatient (IN) | payer OTHER, SELFPAY ==
[2022-05-19] VITALS (39 sets, daily range): BP systolic 153–184; BP diastolic 65–106; PULSE 80–96; RESP 14–24; TEMP 35.9–39.3; O2SAT 91–98
--- NOTE | ~2022-05-19 | XR_ITS ---
EXAMINATION: XR chest 1V portable INDICATION: Shortness of breath and cough TECHNIQUE: Portable AP chest at 1423 hours COMPARISON: 10/14/2017 FINDINGS: There are minimal interstitial and airspace opacities with a mid and lower lung zone predom inance. No pleural effusion or pneumothorax. The heart size is upper limits of normal for technique. Healed right-sided rib fractures are noted. IMPRESSION: 1. Minimal interstitial and airspace opacities of the mid and lower lung zones which could reflect at electasis versus pulmonary edema versus pneumonia. Reviewed, dictated and finalized at location A. SHAVER IMPRESSION: 1. Minimal interstitial and airspace opacities of the mid and lower lung zones which could reflect atelectasis versus pulmonary edema versus pneumonia.
--- NOTE | ~2022-05-19 | XR_ITS ---
EXAMINATION: XR chest 2V DATE: 05/21/2022 09:41 INDICATION: Pneumonia TECHNIQUE: PA and lateral views of the chest were obtained. COMPARISON: Chest radiograph dated 05/19/2022 FINDINGS: No focal airspace opacities, pulmonary edema, pleural effusion or pneumothorax. The cardiomediastinal silhouette is normal. Old bilateral rib fractures. Small focus of rotator cuff calcific tendinitis a long the middle facet of the greater tuberosity. Prior distal right clavicle resection. IMPRESSION: 1. No acute cardiopulmonary disease. Reviewed, dictated and finalized at location A. ILITY ENGINEER
--- NOTE | 2022-05-19 14:05 | ECG_ITS ---
Measurements Intervals [place] Rate: 100 P: -12 DC: 183 QRS: -6 QRSD: 97 T: 28 QT: 325 QTc: 419 Interpretive Statements SINUS TACHYCARDIA ABNORMAL RHYTHM ECG COMPARED TO ECG 04/20/2020 11:04:32 SINUS TACHYCARDIA NOW PRESENT Electronically Signed On 05-19-2022 16:10:45 WASTEWATER MANAGER by Kali Ewing M.D.
--- NOTE | 2022-05-19 14:26 | ED.SOB ---
HPI - SOB/Dyspnea General Chief Complaint: Shortness of Breath/Dyspnea Stated Complaint: SOB Time Seen by Provider: 05/19/22 14:17 History of Present Illness HPI Narrative: 62-year-old female history of chronic kidney disease, hypertension, mitral valve prolapse, obstructive sleep apnea, COPD, depression, hyperlipidemia, migraines, fibromyalgia, CHF presents to the emergency room for evaluation of worsening shortness of breath over the last 2 days. Patient states that she has been using her rescue inhaler increasingly since yesterday with no relief of her wheezing. Patient also endorses fever. Denies any chest pain. states the shortness of breath is worse with exertion Related Data Home Medications Medication Instructions Recorded Confirmed quetiapine 100 mg tablet 100 mg PO .COMPLEX 10/28/20 12/15/21 quetiapine 300 mg tablet 300 mg PO .COMPLEX 10/28/20 12/15/21 Allergies Allergy/AdvReac Type Severity Reaction Status Date / Time Iodine and Iodide Containing Allergy Severe hives Verified 05/09/22 11:29 Produc naproxen Allergy Severe hives Verified 05/09/22 11:29 Penicillins Allergy Severe hives Verified 05/09/22 11:29 Sulfa (Sulfonamide Allergy Severe hives Verified 05/09/22 11:29 Antibiotics) lisinopril Allergy Intermediate Cough Verified 05/09/22 11:29 Contrast Media Allergy Severe HIVES Uncoded 05/09/22 11:29 Review of Systems Review of Systems: CONSTITUTIONAL: Reports fever EYES: Denies visual changes, redness, or discharge. ENT: Denies rhinorrhea, congestion, sore throat, or otalgia. CARDIOVASCULAR: Denies chest pain, palpitations, or edema. RESPIRATORY: Reports cough and dyspnea GASTROINTESTINAL: Denies abdominal pain, nausea, vomiting, or diarrhea. GENITOURINARY: Denies dysuria or hematuria. SKIN: Denies rash or itching. MUSCULOSKELETAL: Denies back pain, joint pain, or myalgia. NEUROLOGIC: Denies headache, numbness, dizziness, or weakness. PSYCHIATRIC: Denies anxiety or depression. [facility]LY [facility] Past Medical History Medical History Adult hypothyroidism (~2004) CHF (congestive heart failure) (~11/11/15) CKD stage G4/A1, GFR 15-29 and albumin creatinine ratio <30 mg/g COPD mixed type (~2015) Dislocation of finger Endometriosis Fibromyalgia (~1997) Former heavy tobacco smoker (~2011) quit 2012 after 35 years of smoking up to 2 ppd per [facility] 10/31/2015 History of suicide attempt (~1974) teens x2; 10/11/2017 Hyperlipidemia, unspecified (~2015) Hypertension Major depression, recurrent, chronic (~1974) Medial meniscus, posterior horn derangement Meniere's disease (~02/11/15) Migraines (~1994) Prediabetes (~12/08/14) Restless leg syndrome (~02/11/15) Surgical History Surgical History H/O hysterectomy for benign disease H/O knee surgery H/O shoulder surgery right History of appendectomy History of section x2 Family History Family History Mother Hypertension Family history of elevated blood lipids Father Carcinoma of colon Patient's father is Sibling Hypertension Sibling Rheumatoid arthritis Other Heart disease Social History Social History Years smoked: 45 Smoking status: Current some day smoker Tobacco type: cigarettes Alcohol intake: never Substance use: never Lack of Transportation: No Lack of Food: Never True Current Housing: I Have Housing Concerned About Future Housing: No Difficulty Paying Gas/Electric Bills: No Difficulty Paying for Meds: No Currently Unemployed: No Education: Associate Degree Difficulty w/ Childcare or Family Care: No Gender identity (if verbalized by the patient): Female Spiritual care concerns: No Agree to blood products: Yes Exam Narrative: GENERAL: Chronicall
[2022-05-19] MEDS: methylPREDNISolone SOD SUCC 125 MG VIAL IV PUSH (14:35)
[2022-05-19 14:40] LABS: Alanine Aminotransferase 29 U/L (6-35); Albumin Level 4.7 g/dL (3.5-5.1); Alkaline Phosphatase 102 U/L (38-126); Anion Gap 11 mmol/L (8-16); Aspartate Amino Transferase 32 U/L (14-36); Bilirubin,Total 0.9 mg/dL (0.2-1.3); Blood Urea Nitrogen 15 mg/dL (7-17); Carbon Dioxide 24 mmol/L (22-30); Chloride 104 mmol/L (98-107); Estimated Glomerular Filt Rate 41; Glucose 145 mg/dL (65-110); Sodium 139 mmol/L (137-145)
--- NOTE | 2022-05-19 14:42 | PC.NURSE ---
RT notified of ordered breathing tx. Patient with audible wheezes. Sating 94% on 2L NC.
[2022-05-19] MEDS: IPRATROPIUM BR 0.02% INH SOLN 0.5 MG/2.5 ML VIAL INHALATION (14:47)
[2022-05-19] MEDS: ALBUTEROL SULFATE NEB 2.5 MG/3 ML INH INHALATION ×2 (14:47→22:09)
[2022-05-19 14:55] LABS: Basophils Percent Auto 0.3 % (0.2-1.2); Eosinophils Absolute Auto 0.1 K/mm3 (0-0.3); Eosinophils Percent Auto 2.4 % (0-4.4); Hematocrit 40.5 % (37.0-47.0); Hemoglobin 13.4 g/dL (12.0-15.0); Immature Granulocyte Absolute 0.01 K/mm3 (0.00-0.031); Immature Granulocyte Percent A 0.2 % (0-0.5); Lymphocytes Absolute Auto 0.94 K/mm3 (0.9-3.2); Lymphocytes Percent Auto 15.8 % (18.3-44.2); Mean Corpuscular HGB Conc 33.1 g/dl (32-36); Mean Corpuscular Hemoglobin 30.5 pg (26-34); Mean Platelet Volume 10.8 fl (7.4-10.4); Monocytes Absolute Auto 0.6 K/mm3 (0.1-0.6); Monocytes Percent Auto 10.6 % (2.6-8.5); Neutrophils Absolute Auto 4.2 K/mm3 (1.3-6.7); Neutrophils Percent Auto 70.7 % (45.5-73.1); Platelet Count Result 218 k/mm3 (150-375); Red Cell Distribution Width 11.6 % (11.5-14.5)
[2022-05-19] MEDS: IPRATROPIUM BR 0.02% INH SOLN 0.5 MG/2.5 ML VIAL 1 MG (15:02)
[2022-05-19] MEDS: ALBUTEROL SULFATE NEB 2.5 MG/3 ML INH 10 MG (15:02)
[2022-05-19 15:06] LABS: Influenza A QL RT-PCR Negative (Negative); Influenza B QL RT-PCR Negative (Negative); SARS-CoV-2 RNA PCR Negative
[2022-05-19 15:19] LABS: NT Pro B Type Natriuretic Pept 188 pg/mL (5-100)
--- NOTE | 2022-05-19 17:02 | PC.NURSE ---
Patient report given to DANA Ferrell. All questions answered and care of patient transferred.
--- NOTE | 2022-05-19 21:12 | PM.IMHP ---
H&P: HPI History of Present Illness Date/Time: 05/19/22 21:13 Chief Complaint: Shortness of breath Narrative: This is a 62-year-old female patient is chronic kidney disease, hypertension mitral valve prolapse obstructive sleep apnea and COPD. The patient presented to the emergency room with evaluation of worsening shortness of breath over the last 2 days. She has been using her rescue inhaler without any relief. The patient has been wheezing as well. The patient complains of a fever but denies any chest pain. Her creatinine is 1.3 which is close to her baseline of 1.0-1.2. The patient is negative for influenza A/B and COVID. Chest x-ray was read as minimal interstitial and airspace opacities at the mid and lower lung zones which could reflect atelectasis versus pulmonary edema versus pneumonia. The patient was started on a azithromycin Rocephin for community-acquired pneumonia. She was given nebulizer treatments and steroids as well. The patient stated that she started to feel somewhat better. The patient is being admitted to observation status on the date of service 05/19/2022. Review of Systems Review of Systems: See HPI All systems reviewed & are unremarkable except as noted in HPI and below Constitutional: Constitutional: Reports as per HPI and Reports no additional constitutional complaints Eyes: Eyes: Reports as per HPI and Reports no additional eye complaints ENT: Reports system reviewed and no additional complaints, except as documented and Reports Normal hearing present Cardiovascular: Cardiovascular: Reports no additional cardiovascular complaints Respiratory: Respiratory: Reports no additional respiratory complaints and Reports no additional respiratory complaints Gastrointestinal: Gastrointestinal: Reports as per HPI and Reports no additional gastrointestinal complaints Musculoskeletal: Musculoskeletal: Reports no additional musculoskeletal complaints Integumentary/Breasts: Skin/Breast: Reports system reviewed and no additional complaints, except as docu and Reports as per HPI Neurologic: Reports system reviewed and no additional complaints, except as documented, Reports as per HPI and Reports Normal hearing present Psychiatric: Psychiatric: Reports no additional psychiatric complaints and Reports as per HPI Endocrine: Endocrine: Reports no additional endocrine complaints Hematologic/Lymphatic: Hematologic/Lymphatic: Reports no additional hematologic/lymphatic complaints Allergic/Immunologic: Allergic/Immunologic: Reports no additional allergic/immunologic complaints PMFSH Past Medical History Medical History Adult hypothyroidism (~2004) CHF (congestive heart failure) (~11/11/15) CKD stage G4/A1, GFR 15-29 and albumin creatinine ratio <30 mg/g COPD mixed type (~2015) Dislocation of finger Endometriosis Fibromyalgia (~1997) Former heavy tobacco smoker (~2011) quit 2011 after 35 years of smoking up to 2 ppd per [facility] 10/31/2015 History of suicide attempt (~1974) teens x2; 10/11/2017 Hyperlipidemia, unspecified (~2015) Hypertension Major depression, recurrent, chronic (~1974) Medial meniscus, posterior horn derangement Meniere's disease (~02/11/15) Migraines (~1994) Prediabetes (~12/08/14) Restless leg syndrome (~02/11/15) Surgical History Surgical History H/O hysterectomy for benign disease H/O knee surgery H/O shoulder surgery right History of appendectomy History of section x2 Family History Family History Mother Hypertension Family history of elevated blood lipids Father Carcinoma of colon Patient's father is Sibling Hypertension Sibling Rheumatoid arthritis Other Heart disease Social History Social History (Updated 05/20/22 @ 00:47 by Ankiat Cedeno NP) Social History: [employer] [place]
[2022-05-19] MEDS: SODIUM CHLORIDE 0.9% IV 1,000 ML 125 ML IV CONT (22:20)
--- NOTE | 2022-05-19 22:33 | PC.NURSE ---
report received from Ada chery RN
[2022-05-20] VITALS (17 sets, daily range): BP systolic 98–160; BP diastolic 56–103; PULSE 76–88; RESP 12–24; TEMP 36.1–36.6; O2SAT 89–96; BMI 44.4
--- NOTE | 2022-05-20 | ECHO_ITS ---
Patient Info Name: Germania Mathew Age: 62 years : 1960 Gender: Female Ht: 65 in Wt: 266 lbs BSA: 2.42 m2 HR: 82 bpm BP: 160 / 103 mmHg Technical Quality: Fair Exam Date: 05/20/2022 1:17 PM Exam Location: [facility] Patient Status: Outpatient Admit Date: 05/19/2022 Staff Ordering Physician: Ankita Cedeno NP Classifying Machine Operator: Meg Rodriguez RDCS Attending Provider: Edgar Meadows MD Referring Physician: Wilian SILVA; Exam Type: CA echo dop color flow w con Study Info Indications I50.9 - Heart failure, unspecified Complete two-dimensional, color flow and Doppler transthoracic echocardiogram is performed with contrast to opacify the left ventricle and to improve the deliniation of the left ventricle endocardial borders. Contrast/Agitated Saline Contrast/Ag. Saline: Definity Amount: 4.00 ml Administered By: Meg Rodriguez RDCS Existing IV Access: Yes IV Access Condition: patent with no signs of infiltration Summary 1. Left ventricular chamber dimension is normal. 2. Definity contrast administered improved wall motion interpretation. 3. Left ventricular systolic function is normal, estimated at 60-65%. 4. The left ventricular diastolic function is grade I diastolic dysfunction. 5. E/e' 12 is mildly elevated. 6. No pulmonary hypertension, estimated pulmonary arterial systolic pressure is 25 mmHg. 7. There is small circumferential pericardial effusion. Left Ventricle E/e' 12 is mildly elevated. Definity contrast administered improved wall motion interpretation. Left ventricular chamber dimension is normal. Left ventricular systolic function is normal, estimated at 60-65%. The left ventricular diastolic function is grade I diastolic dysfunction. Right Ventricle Right ventricular chamber dimension is normal. Right ventricular systolic function is normal. Left Atria Left atrial chamber dimension is normal. Right Atria Right atrial chamber dimension is normal. Aortic Valve The aortic valve is trileaflet. There is no aortic valve stenosis. There is no aortic valve regurgitation. Pulmonic Valve There is no pulmonic regurgitation. Mitral Valve There is no mitral valve stenosis. There is no mitral valve regurgitation. Tricuspid Valve There is no tricuspid valve regurgitation. No pulmonary hypertension, estimated pulmonary arterial systolic pressure is 25 mmHg. Pericardium/Pleural No cardiac tamponade. There is small circumferential pericardial effusion. Inferior Vena Cava Normal inferior vena cava with >50% collapse upon inspiration consistent with normal right atrial pressure, 5 mmHg. Aorta The aortic root size at the sinus of Valsalva is normal. Left Ventricular Outflow Tract Name Value Normal LVOT 2D LVOT Diameter 1.99 cm LVOT Doppler LVOT Peak Gradient 10 mmHg LVOT Mean Gradient 6 mmHg LVOT VTI 27.39 cm LVOT VTI/AV VTI Ratio 0.85 LVOT Stroke Volume 85.18 ml
--- NOTE | 2022-05-20 00:19 | PC.NURSE ---
This patient, Germania Mathew, was admitted to [facility] Surg Room 332-01. Patient/family oriented to hospital policies and general routines including ID bracelet, bed and alarms, visiting hours, pain management, procedures, bathroom and other care routines, personal items, smoking policy, room service/diet, and visiting hours. Information on how to activate the Rapid Response Team has been discussed. Patient/Family are encouraged to report perceived risks to care and to ask questions if they do not understand what they are told or what they should do.
[2022-05-20] MEDS: ACETAMINOPHEN 325 MG TABLET 650 MG PO (00:32)
[2022-05-20] MEDS: carvediloL 25 MG TABLET PO ×3 (01:13→21:00)
[2022-05-20] MEDS: TIZANIDINE HCL 4 MG TABLET PO ×4 (01:13→17:24)
[2022-05-20] MEDS: rOPINIRole HCL 1 MG TABLET PO (01:13)
[2022-05-20] MEDS: IPRATROPIUM BR 0.02% INH SOLN 0.5 MG/2.5 ML VIAL INHALATION ×4 (01:50→21:59)
[2022-05-20] MEDS: ALBUTEROL SULFATE NEB 2.5 MG/3 ML INH INHALATION ×5 (01:50→21:59)
[2022-05-20] MEDS: LEVOTHYROXINE SODIUM 50 MCG TABLET PO (05:01)
[2022-05-20] MEDS: methylPREDNISolone SOD SUCC 125 MG VIAL 60 MG IV PUSH ×3 (05:01→17:25)
--- NOTE | 2022-05-20 06:10 | PC.NURSE ---
called MD Sebastian pt co sob, fluids stopped, pt audible wheezing. Called respiratory therapy. awaiting call back requested ativan r/t anxiety and for sob.
[2022-05-20] MEDS: LORazepam INJ (*CRX) 2 MG/ML VIAL 1 MG IV PUSH (06:27)
--- NOTE | 2022-05-20 06:27 | PC.NURSE ---
ativan given to help slow down breathing and anxeity, respiratory therapetist to come do prn neb tx. pt still wheezy
[2022-05-20 07:27] LABS: Basophils Percent Auto 0.2 % (0.2-1.2); Hematocrit 40.8 % (37.0-47.0); Hemoglobin 13.5 g/dL (12.0-15.0); Immature Granulocyte Absolute 0.05 K/mm3 (0.00-0.031); Immature Granulocyte Percent A 0.5 % (0-0.5); Lymphocytes Absolute Auto 1.01 K/mm3 (0.9-3.2); Lymphocytes Percent Auto 9.9 % (18.3-44.2); Mean Corpuscular HGB Conc 33.1 g/dl (32-36); Mean Corpuscular Hemoglobin 30.2 pg (26-34); Mean Corpuscular Volume 91.3 fl (80-100); Mean Platelet Volume 10.4 fl (7.4-10.4); Monocytes Absolute Auto 0.3 K/mm3 (0.1-0.6); Monocytes Percent Auto 2.6 % (2.6-8.5); Neutrophils Absolute Auto 8.9 K/mm3 (1.3-6.7); Neutrophils Percent Auto 86.8 % (45.5-73.1); Platelet Count Result 247 k/mm3 (150-375); Red Blood Count 4.47 M/mm3 (4.2-5.4); Red Cell Distribution Width 11.6 % (11.5-14.5); White Blood Count 10.3 K/mm3 (4.5-10.0)
[2022-05-20 07:44] LABS: Alanine Aminotransferase 29 U/L (6-35); Albumin Level 4.7 g/dL (3.5-5.1); Alkaline Phosphatase 101 U/L (38-126); Anion Gap 11 mmol/L (8-16); Aspartate Amino Transferase 30 U/L (14-36); Bilirubin,Total 0.7 mg/dL (0.2-1.3); Blood Urea Nitrogen 15 mg/dL (7-17); Calcium 9.4 mg/dL (8.4-10.2); Carbon Dioxide 25 mmol/L (22-30); Chloride 107 mmol/L (98-107); Estimated CRCL calculation 66 ml/min; Estimated Glomerular Filt Rate 56; Glucose 157 mg/dL (65-110); Magnesium 2.2 mg/dL (1.6-2.3); Potassium 3.9 mmol/L (3.4-5.0); Sodium 143 mmol/L (137-145)
[2022-05-20 08:18] LABS: Thyroid Stimulating Hormone Reflex 0.556 uIU/mL (0.465-4.68)
[2022-05-20] MEDS: ENOXAPARIN 40 MG/0.4 ML SYRINGE SUB-Q (08:23)
[2022-05-20] MEDS: GABAPENTIN 300 MG CAPSULE PO ×3 (08:23→17:25)
[2022-05-20] MEDS: ATORVASTATIN 40 MG TABLET PO (08:24)
[2022-05-20] MEDS: LOSARTAN POTASSIUM 100 MG TABLET PO (08:24)
[2022-05-20] MEDS: QUEtiapine FUMARATE 100 MG TABLET PO (08:24)
[2022-05-20] MEDS: FLUTICASONE/SALMETEROL 115-21 MCG INHALER 1 PUFF 2 PUFF INHALATION ×2 (09:50→21:59)
--- NOTE | 2022-05-20 10:55 | PM.IMPN ---
Progress Note: A&P Assessment and Plan (1) Community acquired pneumonia: Code(s): J18.9 - Pneumonia, unspecified organism Status: Acute Assessment and Plan: -azithromycin Rocephin have been ordered. -continue with nebulizer treatment -tailor antibiotics to cultures (2) Acute respiratory distress: Code(s): R06.03 - Acute respiratory distress Status: Acute Assessment and Plan: Patient is currently on oxygen at 2 L per nasal cannula. (3) Diastolic dysfunction: Code(s): I51.89 - Other ill-defined heart diseases Status: Acute Assessment and Plan: -last echo was 05/10/2018 with an EF of 55-60% grade 1 diastolic relaxation (4) Hypertension: Qualifiers: Hypertension type: primary hypertension Qualified Code(s): I10 - Essential (primary) hypertension Code(s): I10 - Essential (primary) hypertension Status: Acute Assessment and Plan: -continue with Coreg -p.r.n. hydralazine with parameters -continue with losartan (5) SIMON (obstructive sleep apnea): Code(s): G47.33 - Obstructive sleep apnea (adult) (pediatric) Status: Acute Assessment and Plan: Home settings for CPAP (6) Major depression, recurrent, chronic: Onset Date: ~1974 Code(s): F33.9 - Major depressive disorder, recurrent, unspecified Status: Acute Assessment and Plan: -the patient has had a previous suicide attempt but states she does not feel that way now. -continue with Seroquel (7) Hyperlipidemia, unspecified: Onset Date: ~2015 Qualifiers: Hyperlipidemia type: unspecified Qualified Code(s): E78.5 - Hyperlipidemia, unspecified Code(s): E78.5 - Hyperlipidemia, unspecified Status: Acute Assessment and Plan: -continue with Lipitor (8) Restless leg syndrome: Onset Date: ~02/11/15 Code(s): G25.81 - Restless legs syndrome Status: Acute Assessment and Plan: -continue with gabapentin -continue with Requip (9) Fibromyalgia: Onset Date: ~1997 Code(s): M79.7 - Fibromyalgia Status: Acute Assessment and Plan: -continue with Zanaflex -continue with gabapentin Subjective Date/time seen: 05/20/22 10:55 Patient seen during morning rounds today. Patient has mild shortness of breath. No chest pain. No abdominal pain, nausea, no vomiting. Mood stable. Review of Systems Review of Systems: All systems reviewed & are unremarkable except as noted in HPI and below Constitutional: Constitutional: Reports as per HPI and Reports no additional constitutional complaints Eyes: Eyes: Reports as per HPI and Reports no additional eye complaints ENT: Reports system reviewed and no additional complaints, except as documented and Reports Normal hearing present Cardiovascular: Cardiovascular: Reports no additional cardiovascular complaints Respiratory: Respiratory: Reports no additional respiratory complaints and Reports no additional respiratory complaints Gastrointestinal: Gastrointestinal: Reports as per HPI and Reports no additional gastrointestinal complaints Musculoskeletal: Musculoskeletal: Reports no additional musculoskeletal complaints Integumentary/Breasts: Skin/Breast: Reports system reviewed and no additional complaints, except as docu and Reports as per HPI Neurologic: Reports system reviewed and no additional complaints, except as documented, Reports as per HPI and Reports Normal hearing present Psychiatric: Psychiatric: Reports no additional psychiatric complaints and Reports as per HPI Endocrine: Endocrine: Reports no additional endocrine complaints Hematologic/Lymphatic: Hematologic/Lymphatic: Reports no additional hematologic/lymphatic complaints Allergic/Immunologic: Allergic/Immunologic: Reports no additional allergic/immunologic complaints Exam Const: General: cooperative, comfortable, no acute distress, well developed, alert, awake
[2022-05-20] MEDS: guaiFENesin/CODEINE (*CRX) 200/20 MG 10 ML SYRUP PO (11:36)
[2022-05-20] MEDS: POTASSIUM CHLORIDE 20 MEQ TABLET PO (11:37)
[2022-05-20] MEDS: FUROSEMIDE INJ 40 MG/4 ML VIAL IV PUSH (11:37)
[2022-05-20] MEDS: PERFLUTREN LIPID MICROSPHERES 1.5 ML VIAL DILUTED TO 10 ML TOTAL VOLUME IV PUSH (13:35)
[2022-05-20] MEDS: QUEtiapine FUMARATE 100 MG TABLET 300 MG PO (17:24)
[2022-05-21] VITALS (16 sets, daily range): BP systolic 110–145; BP diastolic 59–70; PULSE 67–92; RESP 14–20; TEMP 36–36.6; O2SAT 91–97
[2022-05-21] MEDS: rOPINIRole HCL 1 MG TABLET PO ×2 (00:34→20:40)
[2022-05-21] MEDS: methylPREDNISolone SOD SUCC 125 MG VIAL 60 MG IV PUSH ×5 (01:01→23:32)
[2022-05-21] MEDS: ALBUTEROL SULFATE NEB 2.5 MG/3 ML INH INHALATION ×5 (03:03→20:53)
[2022-05-21] MEDS: IPRATROPIUM BR 0.02% INH SOLN 0.5 MG/2.5 ML VIAL INHALATION ×5 (03:03→20:52)
[2022-05-21] MEDS: LEVOTHYROXINE SODIUM 50 MCG TABLET PO (05:27)
[2022-05-21] MEDS: QUEtiapine FUMARATE 100 MG TABLET PO (09:17)
[2022-05-21] MEDS: ENOXAPARIN 40 MG/0.4 ML SYRINGE SUB-Q (09:17)
[2022-05-21] MEDS: carvediloL 25 MG TABLET PO ×2 (09:18→20:39)
[2022-05-21] MEDS: GABAPENTIN 300 MG CAPSULE PO ×3 (09:18→17:20)
[2022-05-21] MEDS: ATORVASTATIN 40 MG TABLET PO (09:18)
[2022-05-21] MEDS: LOSARTAN POTASSIUM 100 MG TABLET PO (09:18)
[2022-05-21] MEDS: TIZANIDINE HCL 4 MG TABLET PO ×3 (09:19→17:22)
[2022-05-21] MEDS: guaiFENesin/CODEINE (*CRX) 200/20 MG 10 ML SYRUP PO ×3 (09:21→20:44)
[2022-05-21] MEDS: FLUTICASONE/SALMETEROL 115-21 MCG INHALER 1 PUFF 2 PUFF INHALATION ×2 (10:13→20:53)
--- NOTE | 2022-05-21 11:00 | PM.IMPN ---
Progress Note: A&P Assessment and Plan (1) Community acquired pneumonia: Code(s): J18.9 - Pneumonia, unspecified organism Status: Acute Assessment and Plan: -azithromycin Rocephin have been ordered. -continue with nebulizer treatment -tailor antibiotics to cultures (2) Acute respiratory distress: Code(s): R06.03 - Acute respiratory distress Status: Acute Assessment and Plan: Patient is currently on oxygen at 2 L per nasal cannula. (3) Diastolic dysfunction: Code(s): I51.89 - Other ill-defined heart diseases Status: Acute Assessment and Plan: -last echo was 05/10/2018 with an EF of 55-60% grade 1 diastolic relaxation (4) Hypertension: Qualifiers: Hypertension type: primary hypertension Qualified Code(s): I10 - Essential (primary) hypertension Code(s): I10 - Essential (primary) hypertension Status: Acute Assessment and Plan: -continue with Coreg -p.r.n. hydralazine with parameters -continue with losartan (5) SIMON (obstructive sleep apnea): Code(s): G47.33 - Obstructive sleep apnea (adult) (pediatric) Status: Acute Assessment and Plan: Home settings for CPAP (6) Major depression, recurrent, chronic: Onset Date: ~1974 Code(s): F33.9 - Major depressive disorder, recurrent, unspecified Status: Acute Assessment and Plan: -the patient has had a previous suicide attempt but states she does not feel that way now. -continue with Seroquel (7) Hyperlipidemia, unspecified: Onset Date: ~2015 Qualifiers: Hyperlipidemia type: unspecified Qualified Code(s): E78.5 - Hyperlipidemia, unspecified Code(s): E78.5 - Hyperlipidemia, unspecified Status: Acute Assessment and Plan: -continue with Lipitor (8) Restless leg syndrome: Onset Date: ~02/11/15 Code(s): G25.81 - Restless legs syndrome Status: Acute Assessment and Plan: -continue with gabapentin -continue with Requip (9) Fibromyalgia: Onset Date: ~1997 Code(s): M79.7 - Fibromyalgia Status: Acute Assessment and Plan: -continue with Zanaflex -continue with gabapentin Subjective Date/time seen: 05/21/22 11:00 Patient was seen during the morning rounds today. Mild shortness of breath. No chest pain. No abdominal pain, nausea, no vomiting. Mood stable. Review of Systems Review of Systems: All systems reviewed & are unremarkable except as noted in HPI and below Constitutional: Constitutional: Reports as per HPI and Reports no additional constitutional complaints Eyes: Eyes: Reports as per HPI and Reports no additional eye complaints ENT: Reports system reviewed and no additional complaints, except as documented and Reports Normal hearing present Cardiovascular: Cardiovascular: Reports no additional cardiovascular complaints Respiratory: Respiratory: Reports no additional respiratory complaints and Reports no additional respiratory complaints Gastrointestinal: Gastrointestinal: Reports as per HPI and Reports no additional gastrointestinal complaints Musculoskeletal: Musculoskeletal: Reports no additional musculoskeletal complaints Integumentary/Breasts: Skin/Breast: Reports system reviewed and no additional complaints, except as docu and Reports as per HPI Neurologic: Reports system reviewed and no additional complaints, except as documented, Reports as per HPI and Reports Normal hearing present Psychiatric: Psychiatric: Reports no additional psychiatric complaints and Reports as per HPI Endocrine: Endocrine: Reports no additional endocrine complaints Hematologic/Lymphatic: Hematologic/Lymphatic: Reports no additional hematologic/lymphatic complaints Allergic/Immunologic: Allergic/Immunologic: Reports no additional allergic/immunologic complaints Exam Const: General: cooperative, comfortable, no acute distress, well developed, alert, awake,
[2022-05-21] MEDS: QUEtiapine FUMARATE 100 MG TABLET 300 MG PO (20:40)
[2022-05-22] VITALS (12 sets, daily range): BP systolic 103–105; BP diastolic 45–63; PULSE 67–92; RESP 14–20; TEMP 36.3–37.1; O2SAT 93–94
[2022-05-22] MEDS: IPRATROPIUM BR 0.02% INH SOLN 0.5 MG/2.5 ML VIAL INHALATION ×4 (00:29→12:34)
[2022-05-22] MEDS: ALBUTEROL SULFATE NEB 2.5 MG/3 ML INH INHALATION ×4 (00:30→12:34)
[2022-05-22] MEDS: LEVOTHYROXINE SODIUM 50 MCG TABLET PO (06:08)
[2022-05-22] MEDS: methylPREDNISolone SOD SUCC 125 MG VIAL 60 MG IV PUSH ×2 (06:08→12:08)
[2022-05-22] MEDS: guaiFENesin/CODEINE (*CRX) 200/20 MG 10 ML SYRUP PO (06:13)
[2022-05-22] MEDS: TIZANIDINE HCL 4 MG TABLET PO ×2 (08:15→12:08)
[2022-05-22] MEDS: ATORVASTATIN 40 MG TABLET PO (08:15)
[2022-05-22] MEDS: GABAPENTIN 300 MG CAPSULE PO ×2 (08:15→12:08)
[2022-05-22] MEDS: LOSARTAN POTASSIUM 100 MG TABLET PO (08:15)
--- NOTE | 2022-05-22 08:15 | PC.NURSE ---
Patient given incentive spirometer and instructions given with demonstration.
[2022-05-22] MEDS: ENOXAPARIN 40 MG/0.4 ML SYRINGE SUB-Q (08:16)
[2022-05-22] MEDS: QUEtiapine FUMARATE 100 MG TABLET PO (08:16)
[2022-05-22] MEDS: carvediloL 25 MG TABLET PO (08:16)
[2022-05-22] MEDS: FLUTICASONE/SALMETEROL 115-21 MCG INHALER 1 PUFF 2 PUFF INHALATION (09:55)
--- NOTE | 2022-05-22 11:06 | PM.DS ---
DS: Admitting Diagnosis Discharge Date 05/22/2022 Admitting Diagnosis Community-acquired pneumonia DS: Discharge Diagnosis Discharge Diagnosis (1) Community acquired pneumonia: Code(s): J18.9 - Pneumonia, unspecified organism Status: Acute Assessment and Plan: -azithromycin Rocephin have been ordered. -continue with nebulizer treatment -tailor antibiotics to cultures (2) Acute respiratory distress: Code(s): R06.03 - Acute respiratory distress Status: Acute Assessment and Plan: Patient is currently on oxygen at 2 L per nasal cannula. (3) Diastolic dysfunction: Code(s): I51.89 - Other ill-defined heart diseases Status: Acute Assessment and Plan: -last echo was 05/10/2018 with an EF of 55-60% grade 1 diastolic relaxation (4) Hypertension: Qualifiers: Hypertension type: primary hypertension Qualified Code(s): I10 - Essential (primary) hypertension Code(s): I10 - Essential (primary) hypertension Status: Acute Assessment and Plan: -continue with Coreg -p.r.n. hydralazine with parameters -continue with losartan (5) SIMON (obstructive sleep apnea): Code(s): G47.33 - Obstructive sleep apnea (adult) (pediatric) Status: Acute Assessment and Plan: Home settings for CPAP (6) Major depression, recurrent, chronic: Onset Date: ~1974 Code(s): F33.9 - Major depressive disorder, recurrent, unspecified Status: Acute Assessment and Plan: -the patient has had a previous suicide attempt but states she does not feel that way now. -continue with Seroquel (7) Hyperlipidemia, unspecified: Onset Date: ~2015 Qualifiers: Hyperlipidemia type: unspecified Qualified Code(s): E78.5 - Hyperlipidemia, unspecified Code(s): E78.5 - Hyperlipidemia, unspecified Status: Acute Assessment and Plan: -continue with Lipitor (8) Restless leg syndrome: Onset Date: ~02/11/15 Code(s): G25.81 - Restless legs syndrome Status: Acute Assessment and Plan: -continue with gabapentin -continue with Requip (9) Fibromyalgia: Onset Date: ~1997 Code(s): M79.7 - Fibromyalgia Status: Acute Assessment and Plan: -continue with Zanaflex -continue with gabapentin DS: Summary Hospital Course Reason for hospitalization: Community-acquired pneumonia Hospital Course: 62 years old female was admitted complains of having shortness of breath patient was found to have pneumonia. Patient was given IV antibiotics and nebulizer treatment. Patient did not have any complicating stay in the hospital. After few days of treatment based on feeling better. Today patient is feeling better so patient discharged home stable condition. Follow-up outpatient with Pulmonary and primary care scheduled. Repeat chest x-ray in 4 weeks. Status at Discharge Cognitive/behavioral status at discharge: Stable Time Spent with Patient Time attestation: Total time spent providing and/or coordinating discharge services: Exam Const: General: cooperative, comfortable, no acute distress, well developed, alert, awake, Physically active, ill appearing, average body habitus, well nourished and overweight Nutritional Appearance: average body habitus, well nourished and overweight Orientation/consciousness: oriented to person, oriented to place, oriented to time and patient oriented x3 Limitations: no limitations HENMT: Head: normal to inspection, No palpable skull fracture present, normocephalic and atraumatic Ears: hearing grossly normal bilaterally and external ears normal Face/Nose/Sinus: Normal external nose present and Normal nares present Eyes: General: appearance normal, both eyes and all related structures Alignment and Position: alignment normal Periorbital: periorbital findings normal Eyelids: eyelids normal Sclera: sclerae normal Pupils: Equal, round and reactive pupils
[2022-05-22] MEDS: DOXYCYCLINE HYCLATE 100 MG TABLET PO (12:07)
[2022-05-22] MEDS: WATER FOR IRRIGATION, STERILE 1,000 ML BOTTLE 1000 ML (12:51)
== END 2022-05-22 13:10 | disposition home or self-care (01) | DRG 194 ==
LOC: ANHED 17:22 → ANH3MEDSUR 19:37
PROVIDERS: Emergency Medicine; Nurse Practitioner; Admitting Provider Chiropractor; Emergency Provider Nurse Practitioner Family; PCP Nurse Practitioner; Visit Provider Internal Medicine
DX: J18.9 Pneumonia, unspecified organism (principal); I13.0 Hypertensive heart and chronic kidney disease with heart failure and stage 1 through stage 4 chronic kidney disease, or unspecified chronic kidney disease; N18.4 Chronic kidney disease, stage 4 (severe); I50.32 Chronic diastolic (congestive) heart failure; I34.1 Nonrheumatic mitral (valve) prolapse; E78.5 Hyperlipidemia, unspecified; E03.9 Hypothyroidism, unspecified; M79.7 Fibromyalgia; R06.03 Acute respiratory distress; R73.03 Prediabetes; G25.81 Restless legs syndrome; G47.33 Obstructive sleep apnea (adult) (pediatric); F17.210 Nicotine dependence, cigarettes, uncomplicated; F32.A Depression, unspecified; Z20.822 Contact with and (suspected) exposure to COVID-19; Z80.0 Family history of malignant neoplasm of digestive organs
CPT/HCPCS: 36415; 71045; 71046; 80053; 83735; 83880; 84443; 85025; 87040; 87147; 87181; 87186; 87636; 93005; 94640; 94660; 96367; 96375; 96376; 99285; A9270; C8929; G0378; J0456; J0696; J1650; J1940; J2060; J2930; J7030; Q9957

== ENCOUNTER 2023-03-31 09:56 | Outpatient (CLI) | payer MEDICARE, SELFPAY ==
[2023-03-31 11:53] LABS: Basophils Absolute Auto 0.1 K/mm3 (0.0-0.1); Basophils Percent Auto 0.7 % (0.2-1.2); Eosinophils Absolute Auto 0.2 K/mm3 (0-0.3); Eosinophils Percent Auto 2.5 % (0-4.4); Hematocrit 43.9 % (37.0-47.0); Hemoglobin 14.2 g/dL (12.0-15.0); Immature Granulocyte Absolute 0.02 K/mm3 (0.00-0.031); Immature Granulocyte Percent A 0.3 % (0-0.5); Lymphocytes Absolute Auto 1.81 K/mm3 (0.9-3.2); Lymphocytes Percent Auto 26.2 % (18.3-44.2); Mean Corpuscular HGB Conc 32.3 g/dl (32-36); Mean Corpuscular Hemoglobin 30.3 pg (26-34); Mean Corpuscular Volume 93.8 fl (80-100); Mean Platelet Volume 10.6 fl (7.4-10.4); Monocytes Absolute Auto 0.5 K/mm3 (0.1-0.6); Monocytes Percent Auto 7.5 % (2.6-8.5); Neutrophils Absolute Auto 4.4 K/mm3 (1.3-6.7); Neutrophils Percent Auto 62.8 % (45.5-73.1); Platelet Count Result 241 k/mm3 (150-375); Red Blood Count 4.68 M/mm3 (4.2-5.4); Red Cell Distribution Width 11.9 % (11.5-14.5); White Blood Count 6.9 K/mm3 (4.5-10.0)
[2023-03-31 12:05] LABS: Alanine Aminotransferase 26 U/L (6-35); Albumin Level 4.8 g/dL (3.5-5.1); Alkaline Phosphatase 86 U/L (38-126); Anion Gap 8 mmol/L (8-16); Aspartate Amino Transferase 27 U/L (14-36); Blood Urea Nitrogen 17 mg/dL (7-17); Carbon Dioxide 26 mmol/L (22-30); Chloride 103 mmol/L (98-107); Cholesterol 191 mg/dL (0-200); Estimated Glomerular Filt Rate 50; Glucose 128 mg/dL (65-110); HDL Direct 84 mg/dL; Potassium 4.2 mmol/L (3.4-5.0); Sodium 137 mmol/L (137-145); Triglycerides 105 mg/dL (<150)
[2023-03-31 12:20] LABS: LDL Cholesterol Direct 78 mg/dL
[2023-03-31 13:28] LABS: Hemoglobin A1C 5.4 % (<5.7)
[2023-04-04 11:02] LABS: Vitamin D 1,25 (OH)2 Total 34 pg/mL (18-72); Vitamin D2 1,25 (OH)2 <8 pg/mL; Vitamin D3 1,25 (OH)2 34 pg/mL
== END 2023-03-31 09:57 | disposition home or self-care (01) ==
LOC: ANHGOSHLAB 09:57
PROVIDERS: PCP Family Medicine; Visit Provider Nurse Practitioner Family
DX: E03.9 Hypothyroidism, unspecified (principal); I10 Essential (primary) hypertension; R73.03 Prediabetes; E55.9 Vitamin D deficiency, unspecified
CPT/HCPCS: 36415; 80053; 80061; 82652; 83036; 84443; 85025

== ENCOUNTER 2023-04-04 09:32 | Outpatient (CLI) | payer MEDICARE, SELFPAY ==
[2023-04-04 23:52] LABS: Hemoglobin A1C 5.3 % (<5.7)
== END 2023-04-04 09:33 | disposition home or self-care (01) ==
LOC: ANHGOSHLAB 09:33
PROVIDERS: PCP Family Medicine; Visit Provider Nurse Practitioner Family
DX: R73.9 Hyperglycemia, unspecified (principal)
CPT/HCPCS: 36415; 83036